=== PATIENT | female | born 1965 | race Caucasian/White ===

== ENCOUNTER 2016-11-27 06:00 | Day surgery (SDC) | payer BC ==
[2016-11-27] MEDS ORDERED: LACTATED RINGERS 1,000 ML ONE (06:22)
[2016-11-27 08:57] VITALS: BP 124/83; TEMP 96.7; O2SAT 95
--- NOTE | 2016-11-27 09:07 | OP ---
DATE OF PROCEDURE: 11/27/16 PREPROCEDURE DIAGNOSIS: 1. Average risk screening colonoscopy. POSTPROCEDURE DIAGNOSIS: 1. Colonic polyps. PROCEDURE: 1. Colonoscopy with polypectomy. SURGEON: Caden Lopez MD. SEDATION: Monitored anesthesia care. ESTIMATED BLOOD LOSS: Less than 5 mL. PROCEDURE: Informed consent was obtained prior to sedation. The preprocedure cardiopulmonary assessment was satisfactory. The patient was brought to the Endoscopy Suite and placed in the left lateral decubitus position. The patient was then sedated by the anesthesia team. Digital rectal exam revealed no abnormalities. The tip of the Olympus colonoscope was inserted into the rectum and advanced under direct visualization to the cecum as identified by the presence of the appendiceal orifice and ileocecal valve. Preparation of the colon was good. Upon reaching the cecum, the endoscope was slowly withdrawn from the patient with careful attention paid to the entire colonic mucosa for the identification of any flat polyps or vascular lesions. In the cecum, there was an 8 cm sessile polyp in the periappendiceal region. This was resected and retrieved completely with a hot snare. The endoscopic was withdrawn into the rectum where there was an additional 6 mm sessile polyp. This was also resected with the hot snare and retrieved completely. Retroflexed view of the anal verge showed no abnormalities. The endoscope was then withdrawn from the patient and the procedure terminated. RECOMMENDATION: 1. Discharge the patient home with escort. 2. Advance to regular diet. 3. Continue current medications. 4. Followup pathology results. 5. Given that these are likely adenomas, surveillance colonoscopy is recommended in five years' time. #[id number] [facility]
[2016-11-27] MEDS ORDERED: PROPOFOL 200 MG/20 ML VIAL IV ONE (12:00)
== END 2016-11-27 08:55 | disposition home or self-care (01) ==
LOC: AMB 06:00
PROVIDERS: ATTEND Internal Medicine Gastroenterology
DX: Z12.11 Encounter for screening for malignant neoplasm of colon (principal); R10.31 Right lower quadrant pain; D12.0 Benign neoplasm of cecum; D12.7 Benign neoplasm of rectosigmoid junction; Z88.2 Allergy status to sulfonamides; Z87.891 Personal history of nicotine dependence; Z79.899 Other long term (current) drug therapy
CPT/HCPCS: 00810; 45385; J3490; J7120